=== PATIENT | male | born 1955 | race Caucasian/White ===

== ENCOUNTER 2022-02-07 16:19 | Emergency (ER) | payer BC ==
[~2022-02-07] VITALS: Ht 160 cm; Wt 85.7 kg
[2022-02-07 16:31] VITALS: BP 167/63
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
--- NOTE | 2022-02-07 17:52 | NUR ---
PT TAKEN TO XRAY
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
--- NOTE | 2022-02-07 19:23 | NUR ---
Pt report given to LORELEI PETERSON. Transfer of care at this time.
[2022-02-07] MEDS ORDERED: IBUP-1842 PO (19:50)
[2022-02-07] MEDS ORDERED: DICL100G5 TP (19:52)
[2022-02-07] MEDS ORDERED: KETOROLAC 30 MG/ML VIAL IM ONE (19:55)
[2022-02-07 20:14] VITALS: BP 153/64
== END 2022-02-07 20:14 | disposition home or self-care (01) ==
LOC: MED 16:19
DX: S22.010A Wedge compression fracture of first thoracic vertebra, initial encounter for closed fracture (principal); W18.30XA Fall on same level, unspecified, initial encounter; Y93.89 Activity, other specified; Y92.89 Other specified places as the place of occurrence of the external cause; Y99.8 Other external cause status
CPT/HCPCS: 71045; 72072; 72100; 96372; 99284; J1885